=== PATIENT | female | born 1985 | race Hispanic/Latino ===

== ENCOUNTER 2024-05-24 10:38 | Emergency (ER) | payer SELFPAY ==
[~2024-05-24] VITALS: Ht 177.8 cm; Wt 122.5 kg
[~2024-05-24 10:38] MED LIST: CYCLOBENZAPRINE5 MG PO; IBUPROFEN600 MG PO
[2024-05-24 10:47] VITALS: PULSE 75; RESP 18; TEMP 98.6; O2SAT 100
[2024-05-24] MEDS ORDERED: NAPROXEN250 MG PO (11:07)
[2024-05-24] MEDS ORDERED: AMOXICILLIN500 MG PO (11:07)
== END 2024-05-24 11:28 | disposition home or self-care (01) ==
LOC: ER 10:52
DX: K08.89 Other specified disorders of teeth and supporting structures (principal); I10 Essential (primary) hypertension; M54.9 Dorsalgia, unspecified; G89.29 Other chronic pain
CPT/HCPCS: 99283